=== PATIENT | male | born 1955 | race Caucasian/White ===

== ENCOUNTER 2018-06-19 16:35 | Emergency (ER) | payer MEDICARE, SELFPAY ==
[2018-06-19 16:48] VITALS: BP 161/105; PULSE 102; RESP 22; TEMP 36.4
[2018-06-19 17:33] VITALS: RESP 18
--- NOTE | 2018-06-19 17:52 | DI.RAD_ITS ---
SYMPTOM/DIAGNOSIS: CHEST PAIN CHEST X-RAY, PA, LATERAL: Comparison 10/10/12. The heart is normal in size. The lungs are clear. The mediastinal structures and pleura appear intact. CONCLUSION: Normal chest.
--- NOTE | 2018-06-19 17:52 | DI.CT_ITS ---
SYMPTOM/DIAGNOSIS: MANIC BEHAVIOR, STUTTERING CT BRAIN, NONCONTRAST: Comparison MRI 08/21/14. The ventricles and sulci are consistent with the patient's age. No acute infarct, hemorrhage, midline shift or mass effect is identified. The ventricles are intact. The basilar cisterns are patent. There is mucosal thickening seen in the maxillary sinuses and ethmoid air cells bilaterally. There is a mucous retention cyst or polyp in the right sphenoid sinus. The mastoid air cells are well pneumatized. The calvarium is intact. IMPRESSION: No acute intracranial process.
--- NOTE | 2018-06-19 17:54 | ED.GENADUL_ITS ---
Discharge Plan Disposition Patient Disposition: HOME Discharge Details Chief Complaint: GenMedical Clinical Impression: Bipolar disorder, manic phase, Chest pain Primary Care Provider: Jabier Suero ED Provider: Deyvi Stevenson Home Meds and New Rx's Prescriptions: New aspirin [Aspirin Childrens] 81 mg tablet,chewable 81 mg PO DAILY Qty: 30 RF: 0 Continue lorazepam [Ativan] 0.5 MG tablet 0.5 mg PO PRN RF: 0 cholecalciferol (vitamin D3) [Vitamin D3] 2,000 UNIT capsule 2,000 mg PO DAILY RF: 0 mirtazapine [Remeron] 30 mg Tablet 30 mg PO RF: 0 ascorbic acid (vitamin C) [Vitamin C] 1,000 mg Tablet 1 g PO DAILY RF: 0 amino acids [Amino Acid] Capsule 1 tab PO BID RF: 0 clonazepam 0.5 mg Tablet 0.5 mg PO HS PRN PRNRF: 0 vitamin B complex [B Complex 1] Tablet 1 tab PO DAILY RF: 0 taurine 500 mg Capsule 1 cap PO DAILY RF: 0 clobetasol 0.05 % Lotion 1 applic TOPICAL BID RF: 0 L Tryptophan 500 mg PO BID RF: 0 L-Theanine 200 mg PO BID RF: 0 Discharge Instructions Instructions: Chest Pain (ED) Additional Instructions: Your were seen today for chest pain. Please contact your primary care physician to arrange follow-up. You may need additional testing. Return to the ER for any worsening or new concerning symptoms. Referrals: Jabier Suero [Primary Care Provider] - Medical Decision Making 18:50 --63-year-old male with history of bipolar disorder, here with chest discomfort today. Suspect musculoskeletal etiology but history is limited secondary to nathaniel. ECG reviewed and interpreted by me: Left bundle branch block is present with a heart rate of 96, sinus rhythm. Patient notes history of left bundle branch block in the past. Plan to check troponin. Plan is to obtain chest x-ray. Patient also has new stuttering with current episode of nathaniel. Plan to CT head. Regarding the patient's manic state, both patient and his note that this is typical for when his nathaniel flares and do not wish to pursue additional inpatient psychiatric assessment or treatment. They do have outpatient psychiatric treatment scheduled. 20:10 --chest x-ray interpreted by radiology: Negative CT of the head interpreted by radiology with no acute intracranial pathology. Labs reviewed and nondiagnostic. Troponin negative. Patient has had this chest pain for a couple days now to expect that at this point troponin would be elevated if this were ACS. Start him to follow-up with his primary care physician. Usual and customary discharge instructions were provided. Patient and his had an opportunity ask questions. All questions were addressed to their apparent satisfaction. HPI General Mode of arrival: ambulatory . Date/Time Provider Initiated Documentation: 06/19/18 16:56 . Limitations to Documentation: no limitations . Information obtained by: patient and family () . HPI Narrative: 63yo m with history of bipolar disorder, left bundle branch block , here with chief complaint of chest discomfort. Patient notes he was lifting some heavy objects recently and thinks he may have pulled some muscles in his chest. He has been experiencing pain today intermittently. Pain is been mild to moderate. Localized bilateral chest. No pain currently. Patient states he is currently in a state of nathaniel. His nathaniel is typical of a manic flare which he has every few weeks/months. He has decreased remeron dosing and has been experimenting with supplements to control his bipolar. Does note new stuttering that is associated with current nathaniel. Related Data Home Medications Medication Instructions Recorded Confirmed cholecalciferol (vitamin D3) 2,000 mg PO DAILY 09/27/14 06/19/18 [Vitamin D3] lorazepam [Ativan] 0.5 mg PO PRN tab-cap 09/27/14 06/19/18 L Tryptophan 500 mg PO BID 06/19/18 L-Theanine 200 mg PO BID 06/19/18 amino acids [Amino Acid] 1 tab PO BID 06/19/18 06/19/18 ascorbic acid (vitamin C) [Vitamin 1 g PO DAILY 06/19/18 06/19/18 C] aspirin [Aspirin Childrens] 81 mg PO DAILY #30 tab 06/19/18 clobetasol 1 applic TOPICAL BID 06/19/18 06/19/18 clonazepam 0.5 mg PO HS PRN PRN 06/19/18 06/19/18 mirtazapine [Remeron] 30 mg PO 06/19/18 taurine 1 cap PO DAILY 06/19/18 06/19/18 vitamin B complex [B Complex 1] 1 tab PO DAILY 06/19/18 06/19/18 Previous Rx's Medication Instructions Recorded aspirin [Aspirin Childrens] 81 mg PO DAILY #30 tab 06/19/18 Allergies Allergy/AdvReac Type Severity Reaction Status Date / Time divalproex sodium Allergy Intermediate Skin Rash Unverified 06/19/18 17:03 [From Depakote] lamotrigine [From Lamictal] Allergy Intermediate Skin Rash Unverified 06/19/18 17:03 PEANUTS Allergy Intermediate GETS WARM, Uncoded 06/19/18 17:02 SWEATY General Stated Complaint: GenMedical DARYL: 2 Review of Systems Review of Systems All systems reviewed & are unremarkable except as noted in HPI and below Cardiovascular Reports as per HPI and Denies dyspnea Respiratory Denies dyspnea Gastrointestinal Denies nausea and Denies vomiting Neurologic Reports as per HPI Psychiatric Reports anxiety PFSH Medical History Bipolar disorder, manic phase (Acute) Social History Smoking/Tobacco Use Status: Never Exam Const General: cooperative, well developed and well groomed Orientation: alert, awake and oriented x3 HENMT Head: normocephalic and atraumatic Mouth: moist mucous membranes Eyes Conjunctivae: normal conjunctivae Sclera: normal sclerae EOM: EOM intact bilaterally Neck Neck: trachea midline and supple Resp Auscultation: clear to auscultation bilaterally, no rales, no rhonchi and no wheezes Cardio Jugular venous pressure: no JVD Rate: regular rate and not tachycardic Rhythm: regular rhythm GI Palpation: soft, not firm, no guarding, no masses, not rigid and nontender Skin General skin exam: no rashes or lesions noted Neuro General: alert, awake, oriented x3 and tone normal Extrem General: no edema Psych Speech and Movement: speech clear Mood: anxious mood and paranoid Affect: animated Attitude: cooperative Thought Process: tangential Thought Content: normal, no delusions, no homicidality and suicidality Insight: insight good Judgment: judgment good Course Vital Signs Temperature 36.4 C L 06/19/18 16:48 Pulse 102 H 06/19/18 16:48 Respiratory Rate 22 06/19/18 16:48 Blood Pressure 161/105 H 06/19/18 16:48 Temperature 36.4 C L 06/19/18 16:48 Pulse 102 H 06/19/18 16:48 Respiratory Rate 18 06/19/18 17:33 Respiratory Effort Non-Labored 06/19/18 17:33 Respiratory Depth Normal 06/19/18 17:33 Respiratory Pattern Normal 06/19/18 17:33 Blood Pressure 161/105 H 06/19/18 16:48 Blood Pressure Position Sitting 06/19/18 16:48 Oxygen Delivery Method Room Air 06/19/18 16:48 Oxygen Flow Rate 0 06/19/18 16:48
[2018-06-19 18:31] LABS: Abs Immature Grans 0.01 k/cumm (0.0-0.09); Absolute Basophil Count 0.04 k/cumm (0.0-0.2); Absolute Eosinophil Count 0.33 k/cumm (0.0-0.7); Absolute Lymphocyte Count 2.62 k/cumm (1.2-3.4); Absolute Monocyte Count 0.57 k/cumm (0.11-0.7); Basophils % 0.4; Eosinophils % 3.5; HCT 42.6 % (40.0-50.0); HGB 14.6 g/dL (13.5-17.5); Immature Grans % 0.1; Mean Corp. HGB Concentration 34.3 g/dL (32.0-36.0); Mean Corpuscular Hemoglobin 29.6 pg (27.0-33.0); Mean Corpuscular Volume 86.4 fL (80-95); Mean Platelet Volume 10.4 fL (8.0-11.0); Monocytes % 6.1; Neutrophils % 61.9; Platelet Count 227 x1000/uL (130-400); RBC 4.93 m/cumm (4.50-6.00); RBC Distribution Width 14.1 % (11.8-14.1); White Blood Cell Count 9.37 k/cumm (4.4-10.8)
[2018-06-19 18:56] LABS: ALT 23 U/L (12-78); AST 24 U/L (15-37); Albumin 3.9 g/dL (3.4-5.0); Alkaline Phosphatase 68 U/L (46-116); Anion Gap 8.9 mmol/L (3-11); BUN 22 mg/dL (7-18); Bilirubin, Total 0.4 mg/dL (0.2-1.0); CO2 29.1 mmol/L (21.0-32.0); CREATININE 1.24 mg/dL (0.70-1.30); Chloride 102 mmol/L (98-107); Estimated GFR 58.69 (mL/min/1.73m2); Glucose 118 mg/dL (70-100); Potassium 3.8 mmol/L (3.5-5.1); Sodium 140 mmol/L (136-145); Total Protein 8.1 g/dL (6.4-8.2)
--- NOTE | 2018-06-19 18:59 | DI.VRAD_ITS ---
EXAM: XR Chest, 2 Views EXAM DATE/TIME: 06/19/2018 6:39 PM CLINICAL HISTORY: 63 years old, male; Pain; Chest pain; Type not specified TECHNIQUE: XR of the chest, 2 views. COMPARISON: CR CHEST 2 VIEWS PA,LAT 10/10/2012 1:46 PM FINDINGS: Lungs: Clear lungs. Pleural space: No pneumothorax. No sizable pleural effusion. Heart/Mediastinum: No cardiomegaly. Bones/joints: Unremarkable. IMPRESSION: Clear lungs. Dictated and Authenticated by: Bobo Hood MD. Ordering:CORNEL DEAL MD
--- NOTE | 2018-06-19 19:03 | DI.VRAD_ITS ---
EXAM: CT Head Without Intravenous Contrast EXAM DATE/TIME: 06/19/2018 5:54 PM CLINICAL HISTORY: 63 years old, male; Signs and symptoms; Psychosis or psychotic disorder; Other: Manic behavior; Patient HX: Manic behavior, per patient caregiver: Bipolar with manic episode; Stuttering TECHNIQUE: Axial computed tomography images of the head/brain without intravenous contrast. Coronal and sagittal reformatted images were subsequently obtained and reviewed. COMPARISON: MRI - BRAIN W/WO CONTRAST 08/21/2014 4:21 PM FINDINGS: Brain: Age-related involutional changes and chronic microvascular ischemic disease. No evidence for acute transcortical infarct. No mass effect or midline shift. No extra-axial collection. No acute intracranial hemorrhage. Basal cisterns are patent. Ventricles: Normal. No ventriculomegaly. Bones/joints: Normal. No acute fracture. Sinuses: Mucosal thickening involving the ethmoid air cells. No acute sinusitis. Mastoid air cells: Tympanomastoid cavities are clear. Soft tissues: Normal. IMPRESSION: No evidence for acute transcortical infarct, acute intracranial hemorrhage, or mass effect. Dictated and Authenticated by: Bobo Hood MD. Ordering:CORNEL DEAL MD
[2018-06-19 19:06] LABS: Troponin I < 0.02 ng/mL (0.00-0.06)
[2018-06-19 20:26] VITALS: BP 160/82; PULSE 70; RESP 18; TEMP 36.6; O2SAT 95
== END 2018-06-19 20:21 | disposition home or self-care (01) ==
PROVIDERS: Emergency Provider Student in an Organized Health Care Education/Training Program; PCP Family Medicine
DX: R07.9 Chest pain, unspecified (principal); F31.10 Bipolar disorder, current episode manic without psychotic features, unspecified; R47.82 Fluency disorder in conditions classified elsewhere; I44.7 Left bundle-branch block, unspecified
CPT/HCPCS: 36415; 80053; 93005; 99285; 70450; 71046; 84484; 85025; 93010; 99284

== ENCOUNTER 2018-06-22 12:03 | Emergency (ER) | payer MEDICARE, SELFPAY ==
[2018-06-22 12:11] VITALS: BP 153/119; PULSE 103; RESP 18; TEMP 37; O2SAT 98
--- NOTE | 2018-06-22 13:18 | PDOC.MHCN ---
Date of service: 06/22/18 Time of Service: 13:18 Mental Health Crisis Note Presenting Issue How did you arrive at the ED and why did you come: 1205 Clt showed up at our office with his . He met with prescriber. The prescriber strongly felt that the clt was disorganized that he should not go home. I met with the clt and the clt did present as highly disorganized, but with no SI or HI. The clt was able to be convinced to come to the ER with a goal of a voluntary hospitalization. Precipitating Factors The clt denies any SI or HI. Clt does present as high disorganized with tangential speech. The clt is willing to go voluntarily to a psych unit. Clt may need psych medications adjusted. The concern is that if clt is allow to decompensate any further he may endanger self by accidentially overdosing. Clt has been taking a great deal of over the counter supplements that may be exacerbating his condition. Disposition BEHAVIOR: Clt behavior is cooperative but does have a tendency to go off on tangents. EYE CONTACT: Clt maintained a good eye contact MOOD: Clt has a pleasant disposition. AFFECT: Clt's affect was appropriate. APPETITE: Good SLEEP(trouble falling/staying asleep: Disrupted sleep Plan The plan is to have clt go to psych hospital for stabilization and med adjustment.
[2018-06-22 13:36] LABS: Abs Immature Grans 0.01 k/cumm (0.0-0.09); Absolute Basophil Count 0.03 k/cumm (0.0-0.2); Absolute Eosinophil Count 0.18 k/cumm (0.0-0.7); Absolute Lymphocyte Count 1.63 k/cumm (1.2-3.4); Absolute Monocyte Count 0.46 k/cumm (0.11-0.7); Absolute Neutrophil Count 3.99 k/cumm (1.2-6.7); Basophils % 0.5; Eosinophils % 2.9; HCT 38.8 % (40.0-50.0); HGB 13.1 g/dL (13.5-17.5); Immature Grans % 0.2; Lymphocytes % 25.9; Mean Corp. HGB Concentration 33.8 g/dL (32.0-36.0); Mean Corpuscular Hemoglobin 29.8 pg (27.0-33.0); Mean Corpuscular Volume 88.2 fL (80-95); Mean Platelet Volume 10.5 fL (8.0-11.0); Monocytes % 7.3; Neutrophils % 63.2; Platelet Count 206 x1000/uL (130-400); RBC Distribution Width 13.9 % (11.8-14.1)
--- NOTE | 2018-06-22 13:36 | PDOC.ERCMPRO ---
- If Service Date Differs Date of service: 06/22/18 Time of Service: 13:36 Care Management Progress Note Zeus presents at the instruction of [facility] where he was meeting with his medication provider Massiel Tom, whom felt as though Zeus was manic. Zeus has a history of major depressive disorder, for which he sees Massiel Tom for at [facility]. Zeus has been taking [id number] supplements which [facility] states have the side effect of nathaniel. Upon discussion with Zeus he is lying in bed, his speech is pressured, though he is able to answer questions. Zeus denies SI/HI at this time. He has a notebook with papers in his room that he would like to keep with him. Zeus does not have family locally, he has a daughter whom flew in today and will be local for 8 days. VOLUNTARY FOR INPATIENT PSYCHIATRIC STABILIZATION. Current behaviors-cooperative and appropriate in all interactions since arriving at [facility]; he has demonstrated appropriate coping and communication skills. Zeus?s speech is pressured during interactions, and per [facility] he has tangential thinking. Huddle Participants: Ida [facility], Abbey, JORJE Travel Occupational Therapist, DAJA Villagomez,. Date and time:06/22/18 @ 1300 Safety plan has been established with patient, and care team, to adhere to patient goals, identify restrictions based on behavioral status, address nutrition, and determine allowed personal belongings, tools for hygiene and personal care. Determine level of activity including ambulation, level of supervision, visitors, and determine privileges based on behaviors and level of engagement by pt. SAFETY PLAN: 1. Pt to remain in Paper Clothes 2. Will remain in room under direct supervision of one-on-one staff at all times provided by DUNG, [employer] operation shift supervisor. 3. May have paper cups, plates, finger foods as well as a metal spoon with which to eat meals. [facility] staff will be responsible for accounting of utensils after meals. 4. Follow [facility] Management of the Admitted Behavioral Health Patient policy. 5. Comfort bath system only. 6. Zeus has paper/notebook in his room which he may have. May also have a pen. 7. Visitors and daughter only at this time. 8. Activities May have paper, pen, crayons [facility] staff to assess the use of these items. 9. Bathroom privileges may go to the bathroom with staff escort. Placement: [place] have been [place] to Gautam Lawrence, [facility] [facility], [facility], and [facility]. Ida [facility], also states that she will be inquiring about the care bed and if this would be an appropriate option for Zeus.
[2018-06-22 13:46] LABS: Anion Gap 11.1 mmol/L (3-11); BUN 18 mg/dL (7-18); CO2 25.9 mmol/L (21.0-32.0); CREATININE 0.94 mg/dL (0.70-1.30); Chloride 99 mmol/L (98-107); Glucose 107 mg/dL (70-100); Potassium 3.7 mmol/L (3.5-5.1); Sodium 136 mmol/L (136-145)
[2018-06-22 13:51] LABS: *AMPHETAMINES SCREEN URINE Negative (Negative); *BARBITURATES SCREEN URINE Negative (Negative); *BENZODIAZEPINES SCREEN URINE Negative (Negative); Cannabinoids THC Negative (Negative); Cocaine Screen,Urine Negative (Negative); METHADONE URINE SCREEN Negative (Negative); OPIATES URINE SCREEN Negative (Negative)
[2018-06-22 13:54] LABS: Tricyclic Antidepressants Negative (Negative)
[2018-06-22 13:54] LABS: ETHANOL BLOOD < 3.0 mg/dL (<3)
[2018-06-22 14:07] LABS: Calcium 8.7 mg/dL (8.5-10.1)
--- NOTE | 2018-06-22 14:12 | ED.GENADUL_ITS ---
Discharge Plan Disposition Patient Disposition: HOME Condition: Stable Discharge Details Chief Complaint: PsychEval Clinical Impression: Bipolar I disorder with nathaniel Primary Care Provider: Jabier Suero ED Provider: Tere Vivar Home Meds and New Rx's Prescriptions: Continue lorazepam [Ativan] 0.5 MG tablet 0.5 mg PO PRN RF: 0 cholecalciferol (vitamin D3) [Vitamin D3] 2,000 UNIT capsule 2,000 mg PO DAILY RF: 0 mirtazapine [Remeron] 30 mg Tablet 30 mg PO HS RF: 0 ascorbic acid (vitamin C) [Vitamin C] 1,000 mg Tablet 1 g PO DAILY RF: 0 amino acids [Amino Acid] Capsule 1 tab PO BID RF: 0 clonazepam 0.5 mg Tablet 0.5 mg PO HS PRN PRNRF: 0 vitamin B complex [B Complex 1] Tablet 1 tab PO DAILY RF: 0 taurine 500 mg Capsule 1 cap PO DAILY RF: 0 clobetasol 0.05 % Lotion 1 applic TOPICAL BID RF: 0 L Tryptophan 500 mg PO BID RF: 0 L-Theanine 200 mg PO BID RF: 0 aspirin [Aspirin Childrens] 81 mg tablet,chewable 81 mg PO DAILY Qty: 30 RF: 0 Discharge Instructions Instructions: Bipolar Disorder (ED) Additional Instructions: Take your regular medications as directed. Follow-up with your appointment with [facility] human services. Follow-up with [facility] services tomorrow morning for referral to a care bed if your symptoms return. Return immediately to the emergency department any worsening or new concerning symptoms. Discharge Data Discharge Physician: Tere Vivar Medical Decision Making 63-year-old male with history of bipolar disorder who presents for nathaniel for the past week. Denies suicidal homicidal patient. Pt sent by Chayito from [facility] today and recommended to come to the ED for evaluation and hospitalization. Her patient has not been sleeping, increased energy, talkative, manic. Patient has no previous history of hospitalization Blood pressure hypertensive, heart rate within normal limits, afebrile. Patient appears manic, talkative, pressured speech. Patient otherwise appears nontoxic, no acute findings on exam. He seems to have some difficulty with insight into his current condition as when asked why he is here. He disagreed with his that he has not been sleeping. Will check screening labs and have mental health evaluate. Pt seems appropriate for inpatient hospitalization but will d/w mental health. 1700 -- pt medically cleared. He had briefly said to nurse that he wanted to leave but now he is requesting ativan. 1800 -- [facility] called to state pt meets criteria for admission. Will await doc to doc. 2024 --patient and are requesting to go home. feels that patient is less manic and more at baseline. Patient does appear more calm, normal speech. She states he seemed less manic even before the dose of Ativan. Will call mental health to reevaluate. 2199 --discussed with Cecilia from [facility]. Patient is cleared for discharge. He denies any suicidal homicidal ideation. feels comfortable taking patient home as he appears relaxed and not manic. Plan in place for patient to follow-up with [facility] tomorrow morning. If patient develops a return of symptoms, plan is for placement in care bed through [facility] in the morning. and patient instructed return here immediately with any concerns. HPI General Mode of arrival: ambulatory . Date/Time Provider Initiated Documentation: 06/22/18 12:14 . Limitations to Documentation: no limitations . Information obtained by: patient . HPI Narrative: Patient is a 63-year-old male with history of bipolar disorder who presents for nathaniel for the past week. is present at bedside and states that patient has been more talkative, not sleeping, increased energy and seems to have no filter. Denies any acute medical complaints at this time. He denies suicidal homicidal ideation. Denies any previous history of hospitalization. Patient has been taking large amounts of supplements in addition to Ativan, Remeron and clonazepam. Patient states he had an appointment today with Jose from [facility] but was advised to come here for evaluation and hospital Past medical history: Bipolar Disorder II Surgical history: None Social history: Denies tobacco, alcohol or drugs Medications: See list Allergies: DepakoteKishanictal PCP: Dr. Suero Related Data Home Medications Medication Instructions Recorded Confirmed cholecalciferol (vitamin D3) 2,000 mg PO DAILY 09/27/14 06/22/18 [Vitamin D3] lorazepam [Ativan] 0.5 mg PO PRN tab-cap 09/27/14 06/22/18 L Tryptophan 500 mg PO BID 06/19/18 06/22/18 L-Theanine 200 mg PO BID 06/19/18 06/22/18 amino acids [Amino Acid] 1 tab PO BID 06/19/18 06/19/18 ascorbic acid (vitamin C) [Vitamin 1 g PO DAILY 06/19/18 06/22/18 C] aspirin [Aspirin Childrens] 81 mg PO DAILY #30 tab 06/19/18 06/22/18 clobetasol 1 applic TOPICAL BID 06/19/18 06/19/18 clonazepam 0.5 mg PO HS PRN PRN 06/19/18 06/22/18 mirtazapine [Remeron] 30 mg PO HS 06/19/18 06/22/18 taurine 1 cap PO DAILY 06/19/18 06/22/18 vitamin B complex [B Complex 1] 1 tab PO DAILY 06/19/18 06/19/18 Previous Rx's Medication Instructions Recorded aspirin [Aspirin Childrens] 81 mg PO DAILY #30 tab 06/19/18 Allergies Allergy/AdvReac Type Severity Reaction Status Date / Time divalproex sodium Allergy Intermediate Skin Rash Unverified 06/22/18 12:26 [From Depakote] lamotrigine [From Lamictal] Allergy Intermediate Skin Rash Unverified 06/22/18 12:26 PEANUTS Allergy Intermediate GETS WARM, Uncoded 06/22/18 12:26 SWEATY General Stated Complaint: PsychEval DARYL: 2 Review of Systems Review of Systems All systems reviewed & are unremarkable except as noted in HPI and below PFSH Medical History Bipolar disorder, manic phase (Acute) Social History Smoking/Tobacco Use Status: Never Exam Const General: cooperative, healthy appearing, no acute distress and other (talkative , sitting on edge of stretcher) HENMT Head: normal to inspection Mouth: oral mucosae normal Eyes General: appearance normal, both eyes and all related structures Pupils: PERRL EOM: EOM intact bilaterally Neck Neck: normal visual inspection Resp Effort & Inspection: normal respiratory effort and able to speak in complete sentences Auscultation: clear to auscultation bilaterally Cardio Rate: regular rate Rhythm: regular rhythm GI Palpation: soft and nontender Auscultation: normal bowel sounds Skin General skin exam: no rashes or lesions noted Neuro General: alert, awake and oriented x3 Motor: muscle tone normal throughout Extrem General: normal to inspection and full ROM Psych Appearance: grossly normal Speech and Movement: pressured speech Mood: manic mood Affect: elated Attitude: cooperative Thought Content: no hallucinations, no homicidality and suicidality Insight: fair Judgment: fair Course Laboratory Tests Range/Units 06/22/18 06/22/18 06/22/18 12:30 13:20 13:20 WBC (4.4-10.8) k/cumm 6.30 RBC (4.50-6.00) m/cumm 4.40 L Hgb (13.5-17.5) g/dL 13.1 L Hct (40.0-50.0) % 38.8 L MCV (80-95) fL 88.2 MCH (27.0-33.0) pg 29.8 MCHC (32.0-36.0) g/dL 33.8 RDW (11.8-14.1) % 13.9 Plt Count (130-400) x1000/uL 206 MPV (8.0-11.0) fL 10.5 Immature Gran % 0.2 Neutrophils % 63.2 Lymphocytes % 25.9 Monocytes % 7.3 Eosinophils % 2.9 Basophils % 0.5 Absolute Neutrophils (1.2-6.7) k/cumm 3.99 Absolute Lymphocytes (1.2-3.4) k/cumm 1.63 Absolute Monocytes (0.11-0.7) k/cumm 0.46 Absolute Eosinophils (0.0-0.7) k/cumm 0.18 Absolute Basophils (0.0-0.2) k/cumm 0.03 Sodium (136-145) mmol/L 136 Potassium (3.5-5.1) mmol/L 3.7 Chloride (98-107) mmol/L 99 Carbon Dioxide (21.0-32.0) mmol/L 25.9 Anion Gap (3-11) mmol/L 11.1 H BUN (7-18) mg/dL 18 Creatinine (0.70-1.30) mg/dL 0.94 Estimated GFR/1.73 m2 (mL/min/1.73m2) >= 60.00 Glucose (70-100) mg/dL 107 H Calcium (8.5-10.1) mg/dL 8.7 Urine Opiates Screen (Negative) Negative Urine Methadone Screen (Negative) Negative Ur Barbiturates Screen (Negative) Negative Ur Tricyclics Screen (Negative) Negative Ur Amphetamines Screen (Negative) Negative U Benzodiazepines Scrn (Negative) Negative Urine Cocaine Screen (Negative) Negative Ur THC Screen (Negative) Negative Ethyl Alcohol (<3) mg/dL < 3.0 Vital Signs Temperature 98.6 F 06/22/18 12:11 Pulse 103 H 06/22/18 12:11 Respiratory Rate 18 06/22/18 12:11 Blood Pressure 153/119 H 06/22/18 12:11 Pulse Oximetry 98 06/22/18 12:11 Temperature 98.6 F 06/22/18 12:11 Temperature Source Temporal Artery Scan 06/22/18 12:11 Pulse 103 H 06/22/18 12:11 Respiratory Rate 18 06/22/18 12:11 Blood Pressure 153/119 H 06/22/18 12:11 Pulse Oximetry 98 06/22/18 12:11 Oxygen Delivery Method Room Air 06/22/18 12:11 Oxygen Flow Rate 0 06/22/18 12:11 Pain Level 0 06/22/18 12:11 Lab/Test Results Lab/Test Results: Laboratory Tests Range/Units 06/22/18 06/22/18 06/22/18 12:30 13:20 13:20 WBC (4.4-10.8) k/cumm 6.30 RBC (4.50-6.00) m/cumm 4.40 L Hgb (13.5-17.5) g/dL 13.1 L Hct (40.0-50.0) % 38.8 L MCV (80-95) fL 88.2 MCH (27.0-33.0) pg 29.8 MCHC (32.0-36.0) g/dL 33.8 RDW (11.8-14.1) % 13.9 Plt Count (130-400) x1000/uL 206 MPV (8.0-11.0) fL 10.5 Immature Gran % 0.2 Neutrophils % 63.2 Lymphocytes % 25.9 Monocytes % 7.3 Eosinophils % 2.9 Basophils % 0.5 Absolute Neutrophils (1.2-6.7) k/cumm 3.99 Absolute Lymphocytes (1.2-3.4) k/cumm 1.63 Absolute Monocytes (0.11-0.7) k/cumm 0.46 Absolute Eosinophils (0.0-0.7) k/cumm 0.18 Absolute Basophils (0.0-0.2) k/cumm 0.03 Sodium (136-145) mmol/L 136 Potassium (3.5-5.1) mmol/L 3.7 Chloride (98-107) mmol/L 99 Carbon Dioxide (21.0-32.0) mmol/L 25.9 Anion Gap (3-11) mmol/L 11.1 H BUN (7-18) mg/dL 18 Creatinine (0.70-1.30) mg/dL 0.94 Estimated GFR/1.73 m2 (mL/min/1.73m2) >= 60.00 Glucose (70-100) mg/dL 107 H Calcium (8.5-10.1) mg/dL 8.7 Urine Opiates Screen (Negative) Negative Urine Methadone Screen (Negative) Negative Ur Barbiturates Screen (Negative) Negative Ur Tricyclics Screen (Negative) Negative Ur Amphetamines Screen (Negative) Negative U Benzodiazepines Scrn (Negative) Negative Urine Cocaine Screen (Negative) Negative Ur THC Screen (Negative) Negative Ethyl Alcohol (<3) mg/dL < 3.0
--- NOTE | 2018-06-22 15:58 | NUR.NOTE ---
observer with pt. is eating a hamburger, talkative, cooperative. with him.Nursing Note:
[2018-06-22] MEDS: LORazepam 0.5 MG TAB PO (18:43)
--- NOTE | 2018-06-22 21:54 | ERMH_ITS ---
Presenting issue: *How did they arrive here at ER and why did they come: Client showed up at [facility] with his . He met with prescriber. The prescriber strongly felt that the client was disorganized that he should not go home. I met with the client and the client did present as highly disorganized, but with no SI or HI. The client was able to be convinced to come to the ER with a goal of a voluntary hospitalization. Precipitating Factors: *Assessment of Safety SI / HI- (Address delusions if pertaining to the SI/ HI) At this evaluation the client denies any SI or HI. His speech has cleared and he is coherent at this time. He is no longer willing to go to a psychiatric hospital and eber like to go home to his family while they are their visiting. Disposition: *Behavior: Anxious, yet cooperative *Eye Contact: Some eye contact when directly speaking to me, yet when he was telling his history he would look at the wall *Mood: Pleasant *Affect: Appropriate *Appetite: States sometimes good, but usually only eats small meals *Sleep (trouble falling/staying asleep): Having times of no sleep then winds down and sleeps Plan: (please elaborate and include that physician is consulted with plan and/ or placement): Plan for tonight is to allow the client to go home with his as he is not voluntary at this point and is not a harm to self or others. He and his will follow up with [facility] if the clients presentation gets worse , to look into a care bed admission, rather than a psychiatric admission, as he stated that had helped him in the past. His has agreed to give him his medications as prescribed and not to give the supplements that he had recently been taking to see if that helps. Provisional Diagnosis:(only if required by physician): AXIS 5 Case Handover: Done with ED nurse (name): Date & Time Huddle: done with ED staff (for ?boarding? clients): Yes No Date/ Time Referral for Case management: Has phone call for introduction been made Yes No Referral in EMR: Done and sent? Yes NO Clinicians Name and title and Signature: Horacio Wong, MS [facility] ES Make sure that you are photocopying and submitting this to [facility] records dept.to be scanned into chart
== END 2018-06-22 22:18 | disposition home or self-care (01) ==
PROVIDERS: Emergency Provider Physician Assistant; PCP Family Medicine
DX: F31.10 Bipolar disorder, current episode manic without psychotic features, unspecified (principal); I10 Essential (primary) hypertension; Z53.29 Procedure and treatment not carried out because of patient's decision for other reasons
CPT/HCPCS: 80048; 80307; 99283; 80320; 85025

== ENCOUNTER 2018-06-29 19:46 | Emergency (ER) | payer MEDICARE, SELFPAY ==
[2018-06-29 19:50] VITALS: BP 168/95; PULSE 104; RESP 20; TEMP 37.2; O2SAT 98
[2018-06-29 20:04] VITALS: RESP 18
--- NOTE | 2018-06-29 20:24 | W.ED.GENAD ---
Discharge Plan Disposition Patient Disposition: [facility] Discharge Details Chief Complaint: PsychEval Clinical Impression: Psychosis, Altered mental status Primary Care Provider: Jabier Suero ED Provider: Deyvi Stevenson Home Meds and New Rx's Prescriptions: No Action lorazepam [Ativan] 0.5 MG tablet 0.5 mg PO PRN RF: 0 Discharge Data Discharge Date/Time-TO BE ENTERED AT DEPARTURE: 06/30/18 01:15 Medical Decision Making 20:30 -- 63yo m with history of bipolar disorder, recent nathaniel, recently stopped Remeron 4 days ago, now here with altered mentation. Patient is no longer in a manic state. Affect is blunted. Psych exam is limited secondary to altered mental status. Patient is afebrile with no signs of infection on exam. CT head 06/19/18 reviewed and interpreted by radiology: IMPRESSION: No acute intracranial process. Concern for acute psychosis. Patient is unable to care for himself at home and unable to care for him. [facility] human services crisis screener contacted and requested to perform evaluation. Patient is currently stable here in the emergency department. He is here voluntarily. No suicidal or homicidal ideation. -- Patient refusing to provide urine and blood specimen. -- Pt seen by crisis screener and agrees with need for inpatient treatment - [facility] to accept patient in transfer. -- Pt more anxious. Flipping lights on and off. Will offer ativan 1mg PO. 00:17 -- I spoke with [facility] psychiatric nurse Anne Marie who notes accepting provider Dr. Rossi declines doc-to-doc discussion and will accept patient. Will arrange for safe and secure transport to [facility] by [facility]. HPI General Mode of arrival: ambulatory. Date/Time Provider Initiated Documentation: 06/29/18 19:53. Limitations to Documentation: altered mental status. Information obtained by: family (). HPI Narrative: 63-year-old male with history of bipolar disorder who presents with his with concern that he is altered from baseline. Patient was here in a manic state on 06/22/18 and was discharged home with . Seen by psychiatry and remeron was discontinued 4 days ago. Since that time nathaniel has improved. Energy level significantly depressed but now with bizarre behaviors. notes for example, that he recently remove the heating element from his [employer] and put in the wood stove. He has been opening windows in the house and questioning why it so cold. He has been collecting objects and keeping them in his pockets. This morning he told his that he was up in the middle the night counting tiles in the bathroom. She specifically notes he is unable to perform activities of daily living in his current state. She does not feel comfortable with him being at home and caring for him at this time. History and review of systems is limited as patient is not responding to questioning. He has not expressed any pain to his and has not expressed any suicidal or homicidal thoughts. He is holding an empty michelle bullet casing in his hand. denies guns or active ammunition in the home. No trauma. Past medical history: Bipolar Disorder II Surgical history: None Social history: Denies tobacco, alcohol or drugs Medications: See list Allergies: Depakote, Lamictal PCP: Dr. Suero Related Data Home Medications Medication Instructions Recorded Confirmed lorazepam [Ativan] 0.5 mg PO PRN tab-cap 09/27/14 06/29/18 Allergies Allergy/AdvReac Type Severity Reaction Status Date / Time divalproex sodium Allergy Intermediate Skin Rash Unverified 06/29/18 20:01 [From Depakote] lamotrigine [From Lamictal] Allergy Intermediate Skin Rash Unverified 06/29/18 20:01 PEANUTS Allergy Intermediate GETS WARM, Uncoded 06/29/18 20:01 SWEATY General Stated Complaint: AMS/LOC DARYL: 3 Review of Systems Review of Systems Unobtainable due to mental condition [facility] Medical History Bipolar disorder, manic phase (Acute) Social History Smoking/Tobacco Use Status: Never Exam Const General: cooperative and no acute distress Limitations: altered mental status [facility] Head: normocephalic and atraumatic Mouth: moist mucous membranes Eyes Conjunctivae: normal conjunctivae Sclera: normal sclerae Neck Neck: trachea midline and supple Resp Auscultation: clear to auscultation bilaterally, no rales, no rhonchi and no wheezes Cardio Jugular venous pressure: no JVD Rate: regular rate and not tachycardic Rhythm: regular rhythm GI Palpation: soft, not firm, no guarding, no masses, not rigid and nontender Skin General skin exam: no rashes or lesions noted Neuro General: alert, awake, gait normal and tone normal Extrem General: no edema Psych Appearance: disheveled Speech and Movement: not agitated Affect: blunted Attitude: avoids eye contact and refuses to answer Other: unable to assess thought process, thought content, mood, judgment and insight Course Vital Signs Temperature 37.2 C 06/29/18 19:50 Pulse 104 H 06/29/18 19:50 Respiratory Rate 20 06/29/18 19:50 Blood Pressure 168/95 H 06/29/18 19:50 Pulse Oximetry 98 06/29/18 19:50 Temperature 37.2 C 06/29/18 19:50 Temperature Source Temporal Artery Scan 06/29/18 19:50 Pulse 104 H 06/29/18 19:50 Respiratory Rate 18 06/29/18 20:04 Respiratory Effort Non-Labored 06/29/18 20:04 Respiratory Depth Normal 06/29/18 20:04 Respiratory Pattern Normal 06/29/18 20:04 Blood Pressure 168/95 H 06/29/18 19:50 Blood Pressure Position Sitting 06/29/18 19:50 Pulse Oximetry 98 06/29/18 19:50 Oxygen Delivery Method Room Air 06/29/18 19:50 Oxygen Flow Rate 0 06/29/18 19:50 Pain Level 0 06/29/18 19:50
--- NOTE | 2018-06-29 22:33 | ERMH_ITS ---
Presenting issue: *How did they arrive here at ER and why did they come: Client came to the ER tonight with his with concern for acute psychosis. Client is unable to care for himself at home and unable to care for him in this state of mind. Precipitating Factors: *Assessment of Safety SI / HI- (Address delusions if pertaining to the SI/ HI) Client is unable to speak at this time with eyes fluttering when spoken to. His does most of the talking: she has concern with his altered state of mind, and says it is not baseline for him. She states that his PCP had ordered a wash out of all medications including Remeron 4 days ago. She states it got him out of his manic phase, yet this resulted and she has never seen this behavior in her :Energy level significantly depressed but now with bizarre behaviors; for example, that he recently remove the heating element from his oven and put in the wood stove. He has been opening windows in the house and questioning why it so cold. He has been collecting objects and keeping them in his pockets. This morning he told his her that he was up in the middle the night counting tiles in the bathroom. He does shake his head no , when asked if he is SI or HI, with help from his restating the question. Disposition: *Behavior: Shaky, nervous, sleepy *Eye Contact: Can not hold eye contact, eyes fluttering when spoken to as his head moves back and forth *Mood: Anxious *Affect: Broad *Appetite: states fair *Sleep (trouble falling/staying asleep): says he stated earlier he was unable to sleep much Plan: (please elaborate and include that physician is consulted with plan and/ or placement): He has shaken his head in agreement to be hospitalized this time around, and has been accepted at [facility] and is awaiting transport there. Provisional Diagnosis:(only if required by physician): AXIS 5 Case Handover: Done with ED nurse (name): Date & Time Huddle: done with ED staff (for ?boarding? clients): Yes No Date/ Time Referral for Case management: Has phone call for introduction been made Yes No Referral in EMR: Done and sent? Yes NO Clinicians Name and title and Signature: Horacio Wong, MS [facility] ES Make sure that you are photocopying and submitting this to [facility] records dept.to be scanned into chart
[2018-06-30] MEDS: LORazepam 1 MG TAB PO (00:20)
[2018-06-30 06:51] VITALS: BP 168/95; PULSE 104; RESP 18; TEMP 37.2; O2SAT 98
== END 2018-06-30 01:15 | disposition short-term general hospital (02) ==
PROVIDERS: Emergency Provider Student in an Organized Health Care Education/Training Program; PCP Family Medicine
DX: F31.5 Bipolar disorder, current episode depressed, severe, with psychotic features (principal); R41.82 Altered mental status, unspecified
CPT/HCPCS: 80053; 99285; 85025; 99284

== ENCOUNTER 2019-02-02 09:23 | Outpatient (CLI) | payer MEDICARE, SELFPAY | END 2019-02-02 09:43 | PROVIDERS: PCP Family Medicine; Visit Provider Nurse Practitioner Family | DX: F31.5 Bipolar disorder, current episode depressed, severe, with psychotic features (principal); Z79.899 Other long term (current) drug therapy; Z51.81 Encounter for therapeutic drug level monitoring | CPT/HCPCS: 36415; 80342 ==

== ENCOUNTER 2019-02-10 07:27 | Outpatient (CLI) | payer MEDICARE, SELFPAY ==
[2019-02-10 09:43] LABS: Calculated LDL 170 mg/dL; Cholesterol 236 mg/dL (50-200); Glucose 96 mg/dL (70-100); HDL Cholesterol 46 mg/dL (40-60); Triglyceride 104 mg/dL (30-150)
== END 2019-02-10 07:47 ==
PROVIDERS: PCP Family Medicine; Visit Provider Family Medicine
DX: E78.5 Hyperlipidemia, unspecified (principal); F31.9 Bipolar disorder, unspecified; Z79.899 Other long term (current) drug therapy
CPT/HCPCS: 36415; 80061; 82947; 83721

== ENCOUNTER 2020-01-18 13:27 | Outpatient (REF) | payer MEDICARE, SELFPAY ==
[2020-01-18 19:42] LABS: VALPROIC ACID 8.7 ug/mL (50-100)
== END 2020-01-18 13:47 ==
LOC: NCHCN 13:27
PROVIDERS: PCP Family Medicine; Visit Provider Family Medicine
DX: F31.9 Bipolar disorder, unspecified (principal); Z51.81 Encounter for therapeutic drug level monitoring
CPT/HCPCS: 80164

== ENCOUNTER 2020-12-25 03:20 | Outpatient (CLI) | payer MEDICARE, SELFPAY ==
[2020-12-25 10:02] LABS: Abs Immature Grans 0.02 10^3/uL (0.0-0.06); Absolute Basophil Count 0.06 10^3/uL (0.0-0.2); Absolute Lymphocyte Count 1.65 10^3/uL (1.2-3.4); Absolute Monocyte Count 0.32 10^3/uL (0.1-0.8); Eosinophils % 12.2; HCT 41.1 % (40.0-50.0); HGB 13.6 g/dL (13.5-17.5); Immature Grans % 0.3; Lymphocytes % 28.7; MCHC 33.1 % (32.0-36.0); MCV 90.7 fL (80-95); MPV 9.8 fL (8.0-11.0); Monocytes % 5.6; Neutrophils % 52.2; Nucleated RBC 0 %; Platelet Count 232 10^3/uL (130-400); RBC 4.53 10^6/uL (4.36-5.78); RDW 12.8 % (11.8-14.1); RDW-SD 43.1 fL; WBC 5.75 10^3/uL (4.4-10.8)
[2020-12-25 11:30] LABS: ALT 27 U/L (16-63); AST 34 U/L (15-37); Alkaline Phosphatase 73 U/L (46-116); BUN 17 mg/dL (7-18); C-Reactive Protein 0.07 mg/dL (0.0-0.3); CREATININE 1.1 mg/dL (0.70-1.30); Calcium 8.5 mg/dL (8.5-10.1); FREE T4 0.87 ng/dL (0.76-1.46); Glucose 98 mg/dL (74-106); Magnesium 1.9 mg/dL (1.8-2.4); TSH 2.16 uIU/mL (0.36-3.74)
[2020-12-25 12:09] LABS: Calculated LDL 107 mg/dL (<100); Cholesterol 170 mg/dL (<200); HDL Cholesterol 49 mg/dL (40-60); Triglyceride 72 mg/dL (<150); Vitamin B12 542 pg/mL (193-986)
[2020-12-25 12:30] LABS: Hemoglobin A1C 5.5 % (<5.7)
[2020-12-25 16:35] LABS: T3,Free 3.1 pg/mL (2.8-5.3)
[2020-12-26 01:15] LABS: Vitamin D 25 Total 83.6 ng/mL (30-100)
== END 2020-12-25 03:21 | disposition home or self-care (01) ==
LOC: LBO 03:20
PROVIDERS: PCP Family Medicine; Visit Provider Psychiatry & Neurology Psychiatry
DX: F32.2 Major depressive disorder, single episode, severe without psychotic features (principal); Z79.899 Other long term (current) drug therapy
CPT/HCPCS: 36415; 80061; 82306; 82947; 84520; 82310; 82565; 82607; 83036; 83735; 84075; 84439; 84443; 84450; 84460; 84481; 85025; 86140

== ENCOUNTER 2021-01-30 11:38 | Outpatient (RCR) | payer MEDICARE, SELFPAY ==
--- NOTE | 2021-01-30 13:00 | RT.EKG_ITS ---
APPROVED REPORT Exam: Resting ECG Reason for Exam: shortness of breath Patient Location: O HR:91 bpm ECG Measurements Heart Rate 91 AXIS ND 222 P 45 QRSd 167 QRS 4 QT 417 T 161 QTc 513 Conclusion Sinus rhythm...normal P axis, V-rate 60- 99 Prolonged ND interval...ND >215, V-rate 91-120 Left bundle branch block...QRSd>120, broad/notched R ST elevation secondary to IVCD...Multiple VCG criteria
== END 2021-02-12 23:59 | disposition home or self-care (01) ==
LOC: RT 11:38
PROVIDERS: PCP Family Medicine; Visit Provider Psychiatry & Neurology Psychiatry
DX: R06.02 Shortness of breath (principal)
CPT/HCPCS: 93005; 93010

== ENCOUNTER 2022-03-10 16:20 | Outpatient (REF) | payer MEDICARE, SELFPAY ==
[2022-03-10 15:27] LABS: Anion Gap 7.3 mmol/L (3-11); BUN 20 mg/dL (7-18); CO2 29.7 mmol/L (21.0-32.0); CREATININE 1.1 mg/dL (0.70-1.30); Chloride 105 mmol/L (98-107); Glucose 83 mg/dL (74-106); Magnesium 1.9 mg/dL (1.8-2.4); Potassium 3.8 mmol/L (3.5-5.1); Sodium 142 mmol/L (136-145)
[2022-03-10 16:01] LABS: Hemoglobin A1C 5.7 % (<5.7)
[2022-03-11 09:44] LABS: HIV-1/2 Ag & Ab Screen Negative (Negative)
== END 2022-03-10 16:21 | disposition home or self-care (01) ==
LOC: NCHCN 16:20
PROVIDERS: PCP Family Medicine; Visit Provider Family Medicine
DX: I44.7 Left bundle-branch block, unspecified (principal); Z00.00 Encounter for general adult medical examination without abnormal findings
CPT/HCPCS: 80048; 87389; 83036; 83735